=== PATIENT | female | born 1995 ===

== ENCOUNTER 2019-05-05 05:48 | Day surgery (SDC) | payer BC ==
[~2019-05-05] VITALS: Ht 162.6 cm; Wt 72.6 kg
[2019-05-05] VITALS (10 sets, daily range): BP systolic 119–149; BP diastolic 56–99
[~2019-05-05 05:48] MED LIST: TESTOSTERO100 MG/1 M IM
[2019-05-05] MEDS ORDERED: ceFAZolin sod 2 GM in NS 55 ML IVPB ONE (07:00)
--- NOTE | 2019-05-05 07:03 | Anethesia Preoperative Eval ---
Anesthesia Pre-op PMH/ROS General Date of Evaluation: May 05, 2019 Anesthesiologist: Mayco ASA Score: ASA 2 Mallampati Score Class I : Soft palate, uvula, fauces, pillars visible Class II: Soft palate, uvula, fauces visible Class III: Soft palate, base of uvula visible Class IV: Only hard plate visible Mallampati Classification: Class II Surgeon: Shanta Diagnosis: Gender identity disorder Surgical Procedure: bilateral mastectomy Anesthesia History: none Family History: no anesthesia problems Allergies: Coded Allergies: No Known Allergies (Unverified , 05/05/19) Medications: see eMAR Patient NPO?: Yes NPO Date: May 04, 2019 NPO Time: 22:00 Past Medical History Cardiovascular: Denies: HTN, CAD, [place], valve dz, arrhythmia, other Pulmonary: Denies: asthma, COPD, RIMMA, other Gastrointestinal/Genitourinary: Denies: GERD, CRI, ESRD, other Neurologic/Psychiatric: Reports: other - migraines; Denies: dementia, CVA, depression/anxiety, TIA Endocrine: Denies: DM, hypothyroidism, steroids, other HEENT: Denies: cataract (L), cataract (R), glaucoma, EKLUTNA (L), EKLUTNA (R), other Hematology/Immune: Denies: anemia, DVT, bleeding disorder, other Musculoskeletal/Integumentary: Denies: OA, RA, DJD, DDD, edema, other PSxH Narrative: laparotomy Anesthesia Pre-op Phys. Exam Physician Exam Last Vital Signs Date Time Temp Pulse Resp B/P (MAP) Pulse Ox O2 Delivery O2 Flow Rate FiO2 05/05/19 06:32 Room Air 05/05/19 06:29 97.2 46 18 120/73 97 Constitutional: NAD Cardiovascular: RRR Respiratory: CTA Airway Exam Mallampati Score: Class II MO: full ROM: full Teeth: intact Anesthesia Pre-op A/P Labs see chart Urine Test Test 05/05/19 06:10 Urine HCG, Qualitative Negative (NEGATIVE) Risk Assessment & Plan Assessment: ASA II Plan: GA Status Change Before Surgery: No Pre-Antibiotics Drug: Leydi Odonnell MD May 05, 2019 07:03
[2019-05-05] MEDS ORDERED: Bupivacaine 0.25% Inj 30ml INJ ONE (07:19)
[2019-05-05] MEDS ORDERED: Rocuronium Bromide 50mg/5ml Inj IV ONE (07:19)
[2019-05-05] MEDS ORDERED: Muri-Lube ONE (07:19)
[2019-05-05] MEDS ORDERED: Lidocaine 1% 10mg/ml/Epi 0.005mg/ml 30ml vial INJ ONE (07:19)
[2019-05-05] MEDS ORDERED: Metoclopramide 10mg/2ml Inj ONE (07:25)
[2019-05-05] MEDS ORDERED: Dexamethasone 4mg/ml vial ONE (07:25)
[2019-05-05] MEDS ORDERED: Midazolam 2mg/2ml Inj ONE (07:25)
[2019-05-05] MEDS ORDERED: Propofol 200mg/20ml IV ONE (07:25)
[2019-05-05] MEDS ORDERED: fentaNYL 100 mcg/2 mL IV ONE (07:25)
[2019-05-05] MEDS ORDERED: Lidocaine 1% MPF 10mg/ml 5ml ONE (07:25)
[2019-05-05] MEDS ORDERED: LR 1000ml ONE (07:30)
[2019-05-05] MEDS ORDERED: NS Irrig 1000ml ONE (07:30)
[2019-05-05] MEDS ORDERED: Sterile Water Irrig 1000ml IRRIG ONE (07:30)
[2019-05-05] MEDS ORDERED: Dyna-Hex 2% Top Sol 2oz TOPIC ONE (07:30)
--- NOTE | 2019-05-05 07:35 | Pre-Procedure Note/Attestation ---
Pre-Procedure Note/Attestation Complete Prior to Procedure Planned Procedure: bilateral Procedure Narrative: mastectomy with nipple areola reconstruction Indications for Procedure Pre-Operative Diagnosis: gender identity disorder Attestation I attest that I discussed the nature of the procedure; its benefits; risks and complications; and alternatives (and the risks and benefits of such alternatives ), prior to the procedure, with the patient (or the patient's legal consumer sales representative). I attest that, if there was a reasonable possibility of needing a blood transfusion, the patient (or the patient's legal consumer sales representative) was given the [facility] standardized written summary, pursuant to the [place] Blood Safety Act ([place] Health and Safety Code # 1645, as amended). I attest that I re-evaluated the patient just prior to the surgery and that there has been no change in the patient's H&P, except as documented below: Danilo Womack MD May 05, 2019 07:35
[2019-05-05] MEDS ORDERED: Bacitracin Oint 15gm Tube TOPIC ONE (09:52)
--- NOTE | 2019-05-05 11:05 | Operative Note - PDOC ---
Operative Note Operative Note Date of Operation/Procedure: May 05, 2019 Pre-op Diagnosis: gender identity disorder Procedure: bilateral mastectomy with nipple areola reconstruction Post-op Diagnosis: same as pre-op Surgeon: Shanta Anesthesiologist: Mayco Anesthesia: general Specimen: yes - 1) right breast, 2) left breast Complications: none Condition: stable Estimated Blood Loss: minimal Drains: MAYURI - x2 Implant(s) used?: No Danilo Womack MD May 05, 2019 11:05
--- NOTE | 2019-05-05 11:06 | Discharge Instructions ---
Discharge Instructions Discharge Instructions Follow up with: Dr. Womack 05/10/19 Diet: regular Resume Normal Activity?: Yes Activity: ambulate For Surgical Patients Dressing Care: keep dry and clean May shower: No - sponge bathe only For Congestive Heart Failure Reminder Report to your physician any weight gain of 5 pounds or more in one week. Danilo Womack MD May 05, 2019 11:06
[2019-05-05] MEDS ORDERED: LR 1000ml 1,000 ML IVLG SCH (11:08)
--- NOTE | 2019-05-05 11:10 | Immediate Post-Op Evaluation ---
Immediate Post-Op Evalulation Immediate Post-Op Evalulation Procedure: Bilateral breast mastectomy with free nipple graft Date of Evaluation: May 05, 2019 Time of Evaluation: 11:09 IV Fluids: 1.3L Blood Products: 0 Estimated Blood Loss: 10 Urinary Output: 0 Blood Pressure Systolic: 120 Blood Pressure Diastolic: 69 Pulse Rate: 51 Respiratory Rate: 16 O2 Sat by Pulse Oximetry: 100 Temperature (Fahrenheit): 97 Pain Score (1-10): 0 Nausea: No Vomiting: No Complications 0 Patient Status: awake, reacts, patent, none Hydration Status: adequate Drug: Ancef 1g Given Within 1 Hr of Incision: Yes Leydi Powell MD May 05, 2019 11:10
--- NOTE | 2019-05-05 11:11 | 48 Hour Post Anesthesia Eval ---
Post Anesthesia Evaluation Procedure: Bilateral breast mastectomy with free nipple graft Date of Evaluation: May 05, 2019 Airway: patent Nausea: No Vomiting: No Hydration Status: adequate Cardiopulmonary Status: at baseline Mental Status/LOC: patient returned to baseline Post-Anesthesia Complications: 0 Follow-up care needed: ready to discharge Leydi Powell MD May 05, 2019 11:11
[2019-05-05] MEDS ORDERED: Midazolam 2mg/2ml Inj IVP PRN (11:15)
[2019-05-05] MEDS ORDERED: Hydromorphone 0.5mg/0.5ml inj IVP PRN (11:15)
[2019-05-05] MEDS ORDERED: Ketorolac 30mg Inj IV PRN (11:15)
[2019-05-05] MEDS ORDERED: fentaNYL 100 mcg/2 mL IV PRN (11:15)
[2019-05-05] MEDS ORDERED: LORazepam Inj 2mg/ml 1ml IV PRN (11:15)
[2019-05-05] MEDS ORDERED: DiphenhydrAMINE 50mg/ml Inj IVP PRN (11:15)
--- NOTE | 2019-05-05 16:45 | Operative Note - Dictated ---
DATE OF OPERATION: 05/05/2019 PREOPERATIVE DIAGNOSIS: Gender identity disorder. POSTOPERATIVE DIAGNOSIS: Gender identity disorder. PROCEDURE: 1. Bilateral mastectomy. 2. Bilateral nipple areolar reconstruction utilizing full-thickness grafts (each graft 2.5 x 2.5 cm). SURGEON: Danilo Womack M.D. ANESTHESIA: General. ESTIMATED BLOOD LOSS: 20 mL. SPECIMENS: 1. Right breast. 2. Left breast. DRAINS: A 15-[place] Jaison x2. COMPLICATIONS: None. CONDITION TO RECOVERY ROOM: Stable. INDICATION FOR PROCEDURE: This is a very pleasant 23-year-old trans male who desires top surgery mastectomy as part of his transition. He has the appropriate letter for recommendation from his therapist and meets all WPATH criteria for top surgery. I have discussed the risks, benefits, and alternatives to the procedure with him including, but not limited to, bleeding, infection, scarring, nerve injury, asymmetry, contour deformity, hematoma, seroma, loss of nipple sensation, loss of nipple graft and need for additional surgery including revisions. I discussed the orientation of the incisions and the unpredictable nature of scarring. No guarantees were made regarding the outcome. All of his questions have been answered to the best of my ability. He verbalized understanding with everything we discussed and wishes to proceed. DESCRIPTION OF PROCEDURE: The patient was identified in the preoperative holding area and marked in the standing position. He was then brought to the operating room. He was placed in the supine position on the operating room table with his arms extended on arm boards. All bony prominences were adequately padded. Sequential compression devices were placed and intravenous antibiotics were administered. After induction of anesthesia, the patient's chest was prepped and draped in sterile fashion. Starting on the left breast first, the nipple areola complex was placed on manual stretch and a peoria measuring 2.5 centimeters in diameter was drawn out centered around the nipple. Next, the subdermal plane within the marking was infiltrated with 3 mL of 1% lidocaine with epinephrine. Next, I then proceeded to harvest a full-thickness nipple areola graft by incising the areolar marking using a 15 blade scalpel. The graft was subsequently defatted, wrapped in wet gauze and placed on the back table. Next, I then made the inframammary fold incision using a 10 blade scalpel and dissected down to the level of the pectoralis major fascia. I then made the superior breast incision using a 10 blade scalpel and dissected down to the level of Rito's fascia. Skin Rakes were used to retract the skin and a plane of dissection was created between the subcutaneous tissues and breast parenchyma heading in a superior direction towards the level of the clavicle. Afterwards, the breast parenchyma was then elevated off of the pectoralis major fascia proceeding from a medial to lateral direction. The specimen was then passed off the table. Hemostasis was achieved and the wound was irrigated with saline. 5 mL of FloSeal was then placed within the wound and a 15-[place] Jaison drain was then placed within the wound and brought out through a separate stab incision and secured using 2-0 silk suture. Skin librado were then used to temporarily reapproximate the skin. I then shifted my attention to the contralateral side of the chest where the identical procedure was performed. The patient was then sat up on the operating room table and it appeared that he had very reasonable symmetry between the two sides of his chest. I then used a marking pen to draw out the proposed location of the new nipple-areola complex on each side of the chest and these markings were confirmed using direct measurements. The patient was then placed back in the supine position. On each side of the chest, the skin librado were removed and wound closure was performed using interrupted 0 Vicryl suture for the Rito's fascia layer followed by interrupted 3-0 PDS suture for the deep dermal layer, and then a running 3-0 Monocryl subcuticular suture for the skin. Next, I proceeded with the nipple-areola reconstruction portion of the procedure. Starting on the left chest first, I incised the anay areolar marking using a 15 blade scalpel. The intervening skin within the marking was then de-epithelialized. I then brought out the full-thickness nipple areola graft and proceeded to inset it into the de-epithelialized area using a running 5-0 fast-absorbing suture. Several 2-0 silk suture ties were placed around the periphery of the graft. A skin graft bolster was then fashioned and secured into place directly over the full-thickness graft and tied using the 2-0 silk sutures. Next, 10 mL of 0.25% plain Marcaine was injected into the incision. I shifted my attention to the contralateral side of the chest where the identical procedure was performed. Next, Steri-Strips and sterile dressings were then applied. The patient tolerated the procedure well and was sent to the recovery room in stable condition. All instrument, sharp, and sponge counts were correct at the conclusion of the case. Danilo Riccardo Womack DR: TITI JOB#: [id number] CC: CHAN
[2019-05-05] MEDS ORDERED: D5 1/2NS 1,000 ML IV SCH (19:01)
[2019-05-05] MEDS ORDERED: HYDROcodone/Acetamin 5/325 tab ORAL PRN (19:01)
[2019-05-05] MEDS ORDERED: Tylenol #3 tab (300mg/30mg) ORAL PRN (19:01)
[2019-05-05] MEDS ORDERED: HYDROmorphone 1mg/ml Carpuject SUBQ PRN (19:01)
== END 2019-05-05 14:15 | disposition home or self-care (01) ==
LOC: SUR 05:48
DX: F64.9 Gender identity disorder, unspecified (principal)
CPT/HCPCS: 19303; 19350; 81025; J0690; J1100; J1170; J1885; J2250; J2405; J2704; J2765; J3010; J3490; 94003; 94150